=== PATIENT | female | born 1990 | race Caucasian/White ===

== ENCOUNTER 2016-10-19 09:55 | Emergency (ER) | payer MEDICAID ==
[~2016-10-19] VITALS: Ht 160 cm; Wt 68.0 kg
[2016-10-19 10:01] VITALS: Ht 160 cm; Wt 68.0 kg
--- NOTE | 2016-10-19 12:35 | RADRPT ---
PROCEDURE: US OB. CLINICAL INDICATION: Size and dates , PROM TECHNIQUE: Multiple sonographic images of the pelvis and gravid uterus were obtained. The images were reviewed on a PACS workstation. COMPARISON: No prior studies are available for comparison. FINDINGS: There is a single viable intrauterine gestation. Cardiac activity is present with 142 beats per min la posta. There is a variable presentation. The placenta is posterior. There is no evidence for an abruption or placenta previa. There is a normal amount of amniotic fluid with a MVP = 4.7 cm. Measurements were made in order to determine age. The results are as follows: BPD =4.2 cm HC =15.8 cm AC =14 cm FL =2.8 cm Estimated gestational age of approximately 18 weeks and 6 days based on ultrasound measurements. Clinical age: 19 weeks and 0 days. The estimated date of delivery is 03/16/17, based on ultrasound measurements. The EFW = 265 g, 42%, based on LMP age. The ovaries were not visualized. RPTAT: AA IMPRESSION: Single viable intrauterine gestation of approximately 18 weeks and 6 days based on ultrasound measu rements. .Antonio Ojeda MD, Date Time Electronically viewed and signed by .Antonio Ojeda MD, on 10/19/2016 12:35 .S/
[2016-10-19] MEDS ORDERED: METR500T PO (14:05)
--- NOTE | 2016-10-19 14:14 | ERD ---
ER Documentation Chief Complaint Date/Time DATE: 10/19/16 TIME: 14:05 Chief Complaint 19 weeks states had clear liquid discharge this morning HPI This is a 26-year-old female presents to the ER with vaginal discharge that she noticed this morning. Patient is currently 19 weeks and states that she got up to urinate and noticed that she had clear discharge. Patient denies any urinary frequency or dysuria. She denies any pelvic pain, pelvic cramping, vaginal pressure or pain, anal pressure or pain. A0. Patient denies any nausea vomiting or diarrhea. She denies any back pain. ROS 12 point review of systems was done, all negative except per HPI.. Medications Home Meds Active Scripts Metronidazole* (Flagyl*) 500 Mg Tablet, 500 MG PO TID for 7 Days, TAB Prov:MARTHA YBARRA 10/19/16 Allergies Allergies: Coded Allergies: No Known Allergy (Unverified , 10/19/16) PMhx/Soc Medical and Surgical Hx: pt denies Medical Hx, pt denies Surgical Hx Hx Alcohol Use: No Hx Substance Use: No Hx Tobacco Use: No Smoking Status: Never smoker Physical Exam Vitals Vital Signs Date Time Temp Pulse Resp B/P Pulse Ox O2 Delivery O2 Flow Rate FiO2 10/19/16 10:01 97.8 84 18 109/56 96 Physical Exam GENERAL: The patient is well developed and appropriate for usual state of health , in no apparent distress. HEENT: Atraumatic. CHEST: Clear to auscultation bilaterally. There are no rales, wheezes or rhonchi. HEART: Regular rate and rhythm. No murmurs, clicks, rubs or gallops. ABDOMEN: Soft, nontender and nondistended. Good bowel sounds. No rebound or guarding. No gross peritonitis. No gross organomegaly or masses. No Willis sign or McBurney point tenderness. : there is foul smelling vaginal discharge that is jade/yellow in color. no clear fluid is seen from cervical os when patient coughs. NEURO: Alert and oriented. SKIN: The skin is warm and dry. Results 24 hrs [id number] [place], [place] [address] Radiology Main Line: [phone] DIAGNOSTIC IMAGING REPORT Patient: HERMINIO SHEEHAN : 1990 Age: 26 Sex: F MR #: [id number] DOS: 10/19/16 0000 Ordering MD: MARTHA YBARRA PAKwasi Location: [facility] Room/Bed: PROCEDURE: US OB. CLINICAL INDICATION: Size and dates , PROM TECHNIQUE: Multiple sonographic images of the pelvis and gravid uterus were obtained. The images were reviewed on a PACS workstation. COMPARISON: No prior studies are available for comparison. FINDINGS: There is a single viable intrauterine gestation. Cardiac activity is present with 142 beats per minute. There is a variable presentation. The placenta is posterior. There is no evidence for an abruption or placenta previa. There is a normal amount of amniotic fluid with a MVP = 4.7 cm. Measurements were made in order to determine age. The results are as follows: BPD = 4.2 cm HC = 15.8 cm AC = 14 cm FL = 2.8 cm Estimated gestational age of approximately 18 weeks and 6 days based on ultrasound measurements. Clinical age: 19 weeks and 0 days. The estimated date of delivery is 03/16/17, based on ultrasound measurements. The EFW = 265 g, 42%, based on LMP age. The ovaries were not visualized. RPTAT: AA IMPRESSION: Single viable intrauterine gestation of approximately 18 weeks and 6 days based on ultrasound measurements. .Antonio Ojeda MD, Date Time Electronically viewed and signed by .Antonio Ojeda MD, MD on 10/19/2016 12: 35 .S/ CC: MARTHA YBARRA Procedures/MDM This is a 26-year-old female that states she had a vaginal discharge this morning. At this time there is a normal amount of amniotic fluid with no evidence of placenta abruption or previa. I discussed this case with my supervising physician Dr. Correa and with OB transportation attendant. PH testing was done and PH was 5 which is normal for the vaginal acidity ( paper remained yellow.) Discharge however was foul-smelling, patient may have bacterial vaginosis. She will be sent home with metronidazole. 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 She is to return to ER sooner if patient develops any sort of pelvic cramping, vaginal pain, anal pain or cramping or any other worsening symptoms. My medical decision making was discussed with the patient she understands and agrees with plan. Departure Diagnosis: Primary Impression: Vaginal discharge during in second trimester Condition: Stable Patient Instructions: : Your Second Trimester Changes Additional Instructions: Llame al doctor MAANA y filiberto radha YAMILE PARA DENTRO DE 1-2 BACH.Dgale a la secretaria que nosotros le instruimos hacer esta yamile.Avise o llame si clemente condicin se empeora antes de la yamile. Regresa aqui si peor o no mejor. MARTHA YBARRA Oct 19, 2016 14:14
[2016-10-19 14:27] VITALS: TEMP 98.4
== END 2016-10-19 14:28 | disposition home or self-care (01) ==
LOC: FTE 09:55
DX: O99.89 Other specified diseases and conditions complicating pregnancy, childbirth and the puerperium (principal); N89.8 Other specified noninflammatory disorders of vagina; Z3A.18 18 weeks gestation of pregnancy
CPT/HCPCS: 76805; Z7502

== ENCOUNTER 2017-03-08 00:10 | Inpatient (IN) | payer MEDICAID ==
[~2017-03-08] VITALS: Ht 157.5 cm; Wt 67.8 kg
[2017-03-08] VITALS (8 sets, daily range): BP systolic 112–145; BP diastolic 62–73; PULSE 52–71; RESP 17–58
[~2017-03-08 00:10] MED LIST: METR500T PO
[2017-03-08] MEDS ORDERED: OXYTOCIN 30 UNITS/LR 500 ML IV PRN ×2 (01:30→09:00)
[2017-03-08] MEDS ORDERED: METHYLERGONOVINE 0.2 MG INJ IM PRN ×2 (01:30→09:00)
[2017-03-08] MEDS ORDERED: OXYTOCIN 30 UNITS/LR 500 ML IV SCH (01:30)
[2017-03-08] MEDS ORDERED: CEFAZOLIN 2 GM/50 ML (PMX) 50 ML IV SCH (01:30)
[2017-03-08] MEDS ORDERED: CARBOPROST 250 MCG INJ IM PRN ×2 (01:30→09:00)
[2017-03-08] MEDS ORDERED: MISOPROSTOL 200 MCG TAB PR PRN ×2 (01:30→09:00)
[2017-03-08] MEDS: LACTATED RINGER'S 1,000 ML IV SCH ×4 (01:58→22:04)
--- NOTE | 2017-03-08 02:22 | RADRPT ---
PROCEDURE: Obstetrical ultrasound, limited. CLINICAL INDICATION: Pelvic pain. TECHNIQUE: Multiple sonographic images of the pelvis were obtained using transabdominal technique . Images were obtained with pollock scale and color Doppler. The images were reviewed on a PACS works [employer]. COMPARISON: 10/19/2016. FINDINGS: There is a single living intrauterine gestation with the fetus in a vertex presentation. hear t tones of 132 beats per minute are identified. The placenta is right lateral in location, grade 2. There is no evidence of placenta previa or abruption. Measurements were made in order to determine age. The results are as follows: BPD =8.63 cm HC =32.12 cm AC =34.57 cm FL =7.60 cm. Estimated gestational age of approximately 37 weeks and 1 day. The estimated date of delivery is 03/28/2017. The EFW = 3322 +/- 498 grams. Estimated weight percentage equals 44.7%. IMPRESSION: Single viable intrauterine gestation of approximately 37 weeks and 1 day, with an ultrasound CHELLY of 03/28/2017. .Kendell Mathur MD, MD Date Time Electronically viewed and signed by .Kendell Mathur MD, MD on 03/08/2017 02:21 .T/
[2017-03-08] MEDS ORDERED: AMPICILLIN 2 GM/NS (PMX) 100 ML IV STA (02:33)
[2017-03-08] MEDS ORDERED: TERBUTALINE 1 MG/ML INJ SC STA (02:47)
[2017-03-08] MEDS ORDERED: TERBUTALINE 1 ML ONE (02:51)
[2017-03-08 02:53] LABS: BASOPHILS % 0.2 % (0.0-2.0); EOSINOPHILS % 0.2 % (0.0-7.0); HEMATOCRIT 38.1 % (37.0-47.0); HEMOGLOBIN 12.9 g/dl (12.0-16.0); LYMPHOCYTES # 3.1 10^3/ul (0.8-2.9); LYMPHOCYTES % 24.9 % (15.0-51.0); MEAN CORPUSCULAR HGB CONC 33.9 g/dl (32.0-37.0); MEAN CORPUSCULAR VOLUME 91.6 fl (82.0-101.0); MEAN PLATELET VOLUME 11.6 fl (7.4-10.4); MONOCYTE # 0.8 10^3/ul (0.3-0.9); MONOCYTES % 6.3 % (0.0-11.0); NEUTROPHILS % 67.8 % (39.0-77.0); PLATELET COUNT 199 10^3/UL (140-415); RED BLOOD COUNT 4.16 10^6/ul (4.20-5.40); RED CELL DISTRIBUTION WIDTH 15.6 % (11.5-14.5); WHITE BLOOD COUNT 12.5 10^3/ul (4.8-10.8)
[2017-03-08] MEDS ORDERED: TERBUTALINE 1 MG/ML INJ SC ONE (03:00)
[2017-03-08 03:22] LABS: INR 0.96; PROTIME 12.8 Sec (12.2-14.2)
[2017-03-08 03:23] LABS: PARTIAL THROMBOPLASTIN TIME 29.7 Sec (25.0-35.0)
[2017-03-08] MEDS ORDERED: PROPOFOL 200 MG INJ ONE (03:45)
[2017-03-08] MEDS ORDERED: OXYTOCIN 30 UNITS/LR 500 ML BAG IV ONE (03:45)
[2017-03-08] MEDS ORDERED: CEFAZOLIN 1 GM INJ ONE (03:45)
[2017-03-08] MEDS ORDERED: EPHEDrine SULFATE 50 MG/5 ML SYG ONE (03:47)
[2017-03-08] MEDS ORDERED: FENTAnyl 50 MCG/ML VIAL ONE (03:47)
[2017-03-08] MEDS ORDERED: morphine SULFATE/PF (10 MG/10 ML) INJ ONE (03:47)
[2017-03-08] MEDS ORDERED: PHENYLephrine (100 MCG/ML) 5ML SYG ONE (03:47)
[2017-03-08] MEDS ORDERED: ONDANSETRON 4 MG INJ ONE (04:11)
[2017-03-08] MEDS ORDERED: DEXAMETHASONE 4 MG/ML 1 ML INJ ONE (04:12)
--- NOTE | 2017-03-08 04:17 | TRIAGE ---
OB Triage Datetime Report Generated by CPN: 03/08/2017 04:16 Datetime: 03/08/2017 03:27 Comments: PT SHIFTING POSITION, MONITOR PICKING UP MATERNAL HR Datetime: 03/08/2017 03:15 Labor Evaluation Frequency: 3-6 Monitor Mode: External Duration (sec)2399: 40-60 Quality: Moderate Pattern: Normal: <= 5 Contractions in 10 Minutes Resting Tone [place] Number Two: Relaxed Heart Rate FHR Baseline Rate: 135 Monitor Mode: External US Variability: Moderate 6-25 bpm Accelerations: 15X15 Decelerations: None Category: Category I Pain Assessment Pain Scale: 5 Pain Presence: Intermittent Pain Type: Contraction Pain Location: Abdomen Pain Relief Measures: Comfort Measures Datetime: 03/08/2017 02:21 Vaginal Exam Dilatation (cms): 0.5 Effacement (%): 40 Station: -3 Exam By: JereFERRARO Datetime: 03/08/2017 02:15 Maternal Assessment Level of Consciousness: Fully Conscious DTR's/Clonus: DTRs 2+; No Clonus Headache: Denies Blurred Vision: No Nausea/Vomiting: Denies RUQ Epigastric Pain: Denies Facial Edema: None Labor Evaluation Frequency: 2-4 Monitor Mode: External Duration (sec)2399: 40-60 Quality: Moderate Pattern: Normal: <= 5 Contractions in 10 Minutes Resting Tone [place] Number Two: Relaxed Interventions: IV Bolus Heart Rate FHR Baseline Rate: 130 Monitor Mode: External US Variability: Moderate 6-25 bpm Accelerations: 15X15 Decelerations: Variable Category: Category II Pain Assessment Pain Scale: 10 Pain Presence: Intermittent Pain Type: Contraction Pain Location: Abdomen Pain Relief Measures: Comfort Measures Datetime: 03/08/2017 01:58 Assessment Type: Admission Assessment Maternal Assessment Level of Consciousness: Fully Conscious DTR's/Clonus: DTRs 2+; No Clonus Headache: Denies Blurred Vision: No Respiratory Effort: Unlabored; Regular Rhythm; Equal Expansion Breath Sounds, Left: Clear and Equal Breath Sounds, Right: Clear and Equal Nausea/Vomiting: Denies RUQ Epigastric Pain: Denies Lower Extremities Edema: None Degree: None Upper Extremities Edema: None Degree: None Facial Edema: None Fall Risk Assessment History of Falling: (0) No Secondary Diagnosis: (0) No Ambulatory Aid: (0) Bedrest/Nurse Assist IV Therapy: (20) Yes Gait: (0) Normal/Bedrest/Immobile Mental Status: (0) Oriented to Own Ability Fall Score: 20 Fall Risk Score Definition: No Risk: No action required Datetime: 03/08/2017 01:46 Comments: US TECH PERFORMING EFW US SCREENING Datetime: 03/08/2017 01:24 Time of Arrival: 03/08/2017 01:24 EGA: 39.0 Arrived By: Stretcher Arrived From: TRIAGE Datetime: 03/08/2017 01:22 Stage of : OB Triage Labor Evaluation Frequency: 2-5 Monitor Mode: Palpation Duration (sec)2399: 40-100 Quality: Mild Resting Tone [place] Number Two: Relaxed Heart Rate FHR Baseline Rate: 115 Monitor Mode: External US Variability: Moderate 6-25 bpm Accelerations: 15X15 Decelerations: None Category: Category I Datetime: 03/08/2017 00:53 Assessment Type: Triage Maternal Assessment Level of Consciousness: Fully Conscious DTR's/Clonus: DTRs 2+; No Clonus Headache: Denies Blurred Vision: No Respiratory Effort: Unlabored Breath Sounds, Left: Clear and Equal Breath Sounds, Right: Clear and Equal Nausea/Vomiting: Denies RUQ Epigastric Pain: Denies Lower Extremities Edema: Bilateral Lower Extremities Degree: 1+ Upper Extremities Edema: None Degree: None Facial Edema: None Fall Risk Assessment History of Falling: (0) No Secondary Diagnosis: (15) Yes (Annotations: C/S X 1) Ambulatory Aid: (0) Bedrest/Nurse Assist IV Therapy: (0) No Gait: (10) Weak Mental Status: (0) Oriented to Own Ability Fall Score: 25 Fall Risk Score Definition: Low Risk: Please see standard fall prevention interventions Datetime: 03/08/2017 00:33 Vaginal Exam Dilatation (cms): 0.5 Effacement (%): 40 Station: -3 Exam By: Zachary GARCIA Vaginal Bleeding: None Cervix, Consistency: Firm Cervix, Position: Posterior Presentation 'A': Cephalic Datetime: 03/08/2017 00:21 Time of Arrival: 03/08/2017 01:00 EGA: 39.0 Arrived By: Wheelchair Arrived From: Home Chief Complaint: UCs since 2199. Movement: Present Contractions: Regular Time Contractions Began: 03/08/2017 22:00 Contractions: Q5MIN Rupture of Membranes: Denies Vaginal Bleeding: None Vaginal Discharge: Denies Recent Sexual Intercouse: Denies Abdominal Trauma: Not Applicable Patient Complaints: Contractions Additional Patient Complaints: Previous x1 Initial Plan: VS, EFM, SVE Membranes Rupture Method: Artificial Datetime: 03/08/2017 00:20 Monitor Mode: External US Comments: PLACED Datetime: 03/08/2017 00:17 Stage of : OB Triage Monitor Mode: External Contraction Comments: PLACED
[2017-03-08] MEDS ORDERED: NALOXONE (0.4 MG/ML) INJ IV PRN (05:00)
[2017-03-08] MEDS ORDERED: ONDANSETRON 4 MG INJ IV PRN ×2 (05:00→09:00)
[2017-03-08] MEDS ORDERED: TRIMETHOBENZAMIDE 100 MG/ML VIAL IM PRN (05:00)
[2017-03-08] MEDS ORDERED: HYDROmorphONE 1 MG/ML SYG IV PRN ×2 (05:00)
[2017-03-08] MEDS ORDERED: ZOLPIDEM 5 MG TAB PO PRN ×2 (05:00→09:00)
--- NOTE | 2017-03-08 06:28 | HP ---
Date/Time of Note Date/Time of Note DATE: 03/08/17 TIME: 06:22 OB - History Hx of Present Free Text/Dictation 26y.o G@P1 at 39weeks c/o uterine contractions who had x1 previous c/s pain level 8/10 EFM u.c 2-5 min VE ftp 40%-3 admit for repeat c/s course was unevenful. Chief Complaint: uterine contractions Estimated Due Date: Mar 15, 2017 : 2 Para: 1 Spontaneous : 0 Therapeutic : 0 Care: Good Care Ultrasounds: Normal mid trimester US Obstetrical Complications: None Medical Complications: None Past Family/Social History * Past Medical, Surgical, Family and Obstetric Histories reviewed from chart. Blood Type: O+ Rubella: immune RPR/VDRL: Negative GBS Status: Unknown HBsAG: Negative OB Admission Exam Vital Signs Vital Signs Vital Signs Date Time Temp Pulse Resp B/P Pulse Ox O2 Delivery O2 Flow Rate FiO2 03/08/17 00:56 98.1 71 19 118/73 Room Air Physical Exam HEENT: WNL Cervical Dilatation: Fingertip Effacement: 50% Station: -3 Membranes: Intact Amniotic Fluid: Unevaluable Heart Rate: 150's Accelerations: Accelerations Present Decelerations: No Decelerations Varibility: Moderate Contractions on Admission: < 5 Minutes Apart Intensity: Moderate Last 72 hours Lab Results CBC & BMP 03/08/17 02:35 OB Assessment/Plan Reason for admission: section Other Assessment: IUP 39w with previous section in labor Plan: Section RIK TOLBERT MD Mar 08, 2017 06:28
--- NOTE | 2017-03-08 06:48 | OPR ---
Operative Report Planned Procedure Procedure date Mar 08, 2017 Procedure(s) repeat low transverse section Performed by: RIK TOLBERT MD Assisting provider: MANNY STEPHENSON M.D. Anesthesiologist: RADHA CASANOVA DO Pre-procedure diagnosis IUP 39w with previous section in labor Anesthesia Type: spinal Procedure Description Under satisfactory [] anesthesia, the patient was prepped and draped and placed in a supine position, tilted to the left. Pfannenstiel incision was made,along the previous incisional scar, scar tissue was excised and carried through the subcutaneous tissue. Bleeders brought under control with electrocautery. Fascia incised to the length of the incision. Rectus muscles from the fascia , divided midline. Peritoneum exposed, entered Exploration of abdomen revealed gravid uterus. Transverse incision was made in the lower segment of the uterus.above the uterovesical reflection layer by layer and Amniotic sac ruptured. clear amniotic fluid noted. [] Nasal oropharyngeal suction was performed. The baby was handed to the team for immediate attention. The placenta was delivered manually with some difficulty due to accessor lobe was located in the rt horn which was separately removed. Uterine cavity was cleaned with dry lap, It was noticed that rt horn was not firm up as main uterus. hemobate was given directly in the muscle of rt horn. Uterus closed in 2 layers using [#1 and 0 ch gut] in continuous fashion. Peritoneal cavity irrigated with warm saline. Sponge, needle and instrument count reported to be correct. Abdominal peritoneum closed with 0ch gut[] continuously. Rectus muscle approximated with 0ch gut[]. Fascia closed with #1 vicryl , and subcut closed with 00 plain gut[], and skin closed with 000 monocryl in subcuticular manner Estimated blood loss 700[]mL. Urine bag contained [200]mL of urine Post-Procedure Post-procedure diagnosis delivered normal male Findings: Live Baby [boy], Apgars [8] and []9, weight [], position [AUBREY], [] presentation []Vxcord.x1 loose nuchal cord Specimen removed: No Complications: None Pt Condition post procedure: stable Disposition: PACU Physician Certification I, the undersigned physician, hereby certify that I have discussed the procedure described in this consent form with this patient (or the patient's legal resources representative), including: * The risk and benefits of the procedure; * Any adverse reactions that may reasonably be expected to occur; * Any alternative efficacious methods of treatment which may be medically viable ; * The potential problems that may occur during recuperation; * Potential for blood transfusion and associated risks/benefits; and * Any research or economic interest I may have regarding this treatment. I further certify that the patient/legally responsible person was encouraged to ask question and that all questions were answered. RIK TOLBERT MD Mar 08, 2017 06:48
--- NOTE | 2017-03-08 06:55 | SIPON ---
Date/Time of Note Date/Time of Note DATE: 03/08/17 TIME: 06:49 Operative Report Free Text/Dictation with previous c/s in lbor at 39w Preoperative Diagnosis IUP 39weeks with previous c/s Postoperative Diagnosis delivered normal male infant Operation/Procedure Performed repeat lowtransverse section Surgeon: RIK TOLBERT MD Co-Surgeon: MANNY STEPHENSON M.D. Anesthesia Type: spinal Estimated Blood Loss: other (700cc) Transfusion Required: no Specimen: none Specimens none Grafts/Implants: none Grafts/Implants none Complications: no RIK TOLBERT MD Mar 08, 2017 06:55
[2017-03-08] MEDS ORDERED: LIDOCAINE 2% (SDV) 5 ML INJ ONE (07:00)
[2017-03-08] MEDS ORDERED: AMPICILLIN 1 GM/NS (PMX) 50 ML IV SCH (07:00)
[2017-03-08] MEDS ORDERED: DESFLURANE 15 MIN ONE (07:00)
[2017-03-08 08:06] LABS: HAAIG REFLEX REFLEX FILED
[2017-03-08] MEDS ORDERED: DIPHENHYDRAMINE 50 MG INJ IV PRN (09:00)
[2017-03-08] MEDS: SENNA/DOCUSATE NA (8.6MG/50MG) TAB PO SCH ×2 (09:00→21:20)
[2017-03-08] MEDS ORDERED: LANOLIN 7 GM TUBE TOP PRN (09:00)
[2017-03-08] MEDS ORDERED: OXYCODONE/ACETAMINOPHEN (5/325) TAB PO PRN ×2 (09:00)
[2017-03-08 09:07] LABS: HEPATITIS B CORE ANTIBODY NEGATIVE (NEGATIVE)
[2017-03-08] MEDS: KETOROLAC 30 MG INJ IV PRN (22:04)
[2017-03-09 00:15] VITALS: BP 105/62; PULSE 72; RESP 18
[2017-03-09 03:43] VITALS: BP 113/68; PULSE 60; RESP 18
[2017-03-09] MEDS: KETOROLAC 30 MG INJ IV PRN (03:43)
[2017-03-09] MEDS: IBUPROFEN 600 MG TAB PO SCH ×4 (06:00→23:58)
[2017-03-09 08:00] VITALS: BP 107/53; PULSE 55; RESP 16
[2017-03-09] MEDS: LACTATED RINGER'S 1,000 ML IV SCH ×2 (09:11→17:11)
[2017-03-09] MEDS: SENNA/DOCUSATE NA (8.6MG/50MG) TAB PO SCH ×2 (09:34→21:56)
[2017-03-09 10:01] LABS: BASOPHILS % 0.1 % (0.0-2.0); EOSINOPHILS # 0.1 10^3/ul (0.0-0.5); EOSINOPHILS % 0.4 % (0.0-7.0); HEMATOCRIT 36.2 % (37.0-47.0); HEMOGLOBIN 11.8 g/dl (12.0-16.0); LYMPHOCYTES # 2.8 10^3/ul (0.8-2.9); LYMPHOCYTES % 15.4 % (15.0-51.0); MEAN CORPUSCULAR HEMOGLOBIN 30.6 pg (29.0-33.0); MEAN CORPUSCULAR HGB CONC 32.6 g/dl (32.0-37.0); MEAN PLATELET VOLUME 11.5 fl (7.4-10.4); MONOCYTE # 1.2 10^3/ul (0.3-0.9); MONOCYTES % 6.5 % (0.0-11.0); PLATELET COUNT 164 10^3/UL (140-415); RED BLOOD COUNT 3.85 10^6/ul (4.20-5.40); RED CELL DISTRIBUTION WIDTH 16.1 % (11.5-14.5); WHITE BLOOD COUNT 17.9 10^3/ul (4.8-10.8)
--- NOTE | 2017-03-09 14:02 | PN ---
Date/Time of Note Date/Time of Note DATE: 03/09/17 TIME: 13:58 OB Subjective Subjective Subjective passing flatus OB Objective Objective Objective vss afebrile abdomen soft wound dry lochia min calf neg for tenderness OB Assessment/Plan Reason for admission: section Other Assessment: pod #1 stable Other plan: as ordered RIK TOLBERT MD Mar 09, 2017 14:01
[2017-03-09 16:00] VITALS: BP 102/53; PULSE 66; RESP 16
[2017-03-09 20:00] VITALS: BP 126/77; PULSE 63; RESP 18
[2017-03-10 04:20] VITALS: BP 108/59; PULSE 52; RESP 18
[2017-03-10] MEDS: IBUPROFEN 600 MG TAB PO SCH ×3 (05:33→17:58)
[2017-03-10 08:45] VITALS: BP 104/62; PULSE 57; RESP 19
[2017-03-10] MEDS: SENNA/DOCUSATE NA (8.6MG/50MG) TAB PO SCH (09:00)
[2017-03-10 09:43] LABS: BASOPHILS % 0.3 % (0.0-2.0); EOSINOPHILS # 0.1 10^3/ul (0.0-0.5); EOSINOPHILS % 0.6 % (0.0-7.0); HEMOGLOBIN 11.6 g/dl (12.0-16.0); LYMPHOCYTES # 2.9 10^3/ul (0.8-2.9); LYMPHOCYTES % 18.2 % (15.0-51.0); MEAN CORPUSCULAR HGB CONC 33.1 g/dl (32.0-37.0); MEAN CORPUSCULAR VOLUME 93.6 fl (82.0-101.0); MEAN PLATELET VOLUME 11.6 fl (7.4-10.4); MONOCYTES % 6.1 % (0.0-11.0); NEUTROPHILS % 74.4 % (39.0-77.0); PLATELET COUNT 182 10^3/UL (140-415); RED BLOOD COUNT 3.74 10^6/ul (4.20-5.40); RED CELL DISTRIBUTION WIDTH 15.7 % (11.5-14.5); WHITE BLOOD COUNT 15.6 10^3/ul (4.8-10.8)
--- NOTE | 2017-03-10 15:58 | PD.PPDC ---
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
--- NOTE | 2017-03-10 16:02 | DS ---
Date/Time of Note Date/Time of Note DATE: 03/10/17 TIME: 16:01 Obstetrical Discharge Record Final Diagnosis Final Diagnosis: Term delivered Section Section: Repeat Complications Augmentation: No Induction: No Rupture of Membranes: No Condition on Discharge Physical Assessment Last Vitals: vss afebrile Voiding: Yes Bowel Movement: Yes Breast: Soft, non-tender Fundus: Firm Abdomen and Incision: wound dry abdomen soft Calf Tenderness: No Patient Condition: Stable RIK TOLBERT MD Mar 10, 2017 16:02
[2017-03-10] MEDS ORDERED: DIPHTH/TET/ACEL PERTUSS (ADULT) 0.5 ML VIAL IM* ONE (17:00)
[2017-03-11] MEDS ORDERED: DIPHTH/TET/ACEL PERTUSS (ADULT) 0.5 ML VIAL IM* ONE (09:00)
== END 2017-03-10 18:30 | disposition home or self-care (01) | DRG 766 ==
LOC: L-D 00:10 → OBT 00:10 → L-D 01:18 → PP1 09:17
PROVIDERS: ADMIT Obstetrics & Gynecology; ATTEND Obstetrics & Gynecology
PROC: 10D00Z1 Extraction of Products of Conception, Low, Open Approach (ICD-10-PCS; principal; 2017-03-08 04:00)
PROC: 3E0234Z Introduction of Serum, Toxoid and Vaccine into Muscle, Percutaneous Approach (ICD-10-PCS; 2017-03-10)
DX: O34.211 Maternal care for low transverse scar from previous cesarean delivery (principal); Z3A.39 39 weeks gestation of pregnancy; Z37.0 Single live birth; Z23 Encounter for immunization
CPT/HCPCS: 76815; 85025; 85610; 85730; 86592; 86703; 86704; 86709; 86803; 86850; 86900; 86901; 87340; 90715; 94760; 99464; G0463; J0290; J0690; J1100; J1885; J2274; J2370; J2405; J2590; J3010; J3105; J7120

== ENCOUNTER 2018-09-03 11:51 | Inpatient (IN) | payer MEDICAID ==
[~2018-09-03] VITALS: Ht 157.5 cm; Wt 72.6 kg
[2018-09-03] MEDS ORDERED: PREN-93 PO (12:10)
[2018-09-03 12:11] VITALS: BP 110/59; PULSE 64; RESP 18; Ht 157.5 cm; Wt 72.6 kg
--- NOTE | 2018-09-03 14:00 | TRIAGE ---
OB Triage Datetime Report Generated by CPN: 09/03/2018 14:00 Datetime: 09/03/2018 13:00 Stage of : OB Triage Maternal Assessment Level of Consciousness: Fully Conscious Labor Evaluation Frequency: 2-4 Monitor Mode: External Duration (sec)2399: 50-130 Quality: Moderate Resting Tone [place]: Relaxed Heart Rate FHR Baseline Rate: 125 Monitor Mode: External US Variability: Moderate 6-25 bpm Accelerations: 15X15 Decelerations: None Category: Category I Pain Assessment Pain Scale: 0 Pain Goal: 3 Vaginal Exam Membrane Status: Intact Vaginal Bleeding: None Datetime: 09/03/2018 12:08 Assessment Type: Triage Maternal Assessment Level of Consciousness: Fully Conscious DTR's/Clonus: DTRs 2+; No Clonus Headache: Denies Blurred Vision: No Respiratory Effort: Unlabored; Regular Rhythm; Equal Expansion Breath Sounds, Left: Clear and Equal Breath Sounds, Right: Clear and Equal Nausea/Vomiting: Denies RUQ Epigastric Pain: Denies Lower Extremities Edema: None Degree: None Upper Extremities Edema: None Degree: None Facial Edema: None Fall Risk Assessment History of Falling: (0) No Secondary Diagnosis: (0) No Ambulatory Aid: (0) Bedrest/Nurse Assist IV Therapy: (0) No Gait: (0) Normal/Bedrest/Immobile Mental Status: (0) Oriented to Own Ability Fall Score: 0 Fall Risk Score Definition: No Risk: No action required Datetime: 09/03/2018 12:07 Time of Arrival: 09/02/2018 11:47 EGA: 38.5 Arrived By: Ambulatory Arrived From: Home Chief Complaint: pt. here c/o spotting since this am Movement: Present Contractions: Denies/Absent Rupture of Membranes: Denies Vaginal Bleeding: None Vaginal Discharge: Denies Recent Sexual Intercouse: Denies Abdominal Trauma: Not Applicable Patient Complaints: Contractions; Cramping; Back Pain Time Provider Notified: 09/03/2018 13:57 Provider Notified: REICHE Datetime: 09/03/2018 12:05 Monitor Mode: External Monitor Mode: External US
[2018-09-03] MEDS ORDERED: LACTATED RINGER'S 1,000 ML IV SCH (14:48)
[2018-09-03] MEDS ORDERED: TERBUTALINE 1 MG/ML INJ SC ONE (15:00)
[2018-09-03] MEDS ORDERED: CEFAZOLIN 2 GM/50 ML (PMX) 50 ML IVPB SCH (15:00)
[2018-09-03] MEDS ORDERED: BUTORPHANOL 2 MG INJ IV PRN (15:00)
[2018-09-03] MEDS ORDERED: OXYTOCIN 30 UNITS/LR 500 ML IV SCH (15:00)
[2018-09-03] MEDS ORDERED: OXYTOCIN 30 UNITS/LR 500 ML IV PRN ×2 (15:00→20:00)
[2018-09-03] MEDS ORDERED: BUTORPHANOL 1 MG INJ IV PRN (15:00)
[2018-09-03] MEDS ORDERED: CARBOPROST 250 MCG INJ IM PRN ×2 (15:00→20:00)
[2018-09-03] MEDS ORDERED: MISOPROSTOL 200 MCG TAB PR PRN ×2 (15:00→20:00)
[2018-09-03] MEDS ORDERED: METHYLERGONOVINE 0.2 MG INJ IM PRN ×2 (15:00→20:00)
[2018-09-03] MEDS ORDERED: ONDANSETRON 4 MG INJ IV STA (16:40)
[2018-09-03] MEDS ORDERED: METOCLOPRAMIDE 10 MG INJ IV ONE (17:00)
[2018-09-03] MEDS ORDERED: FAMOTIDINE 20 MG INJ IV ONE (17:00)
--- NOTE | 2018-09-03 17:18 | PREAC ---
Date/Time of Note Date/Time of Note DATE: 09/03/18 TIME: 17:17 Anesthesia Eval and Record Evaluation Time Pre-Procedure Interview DATE: 09/03/18 TIME: 17:17 Age 28 Sex female NPO: 8 hrs Preoperative diagnosis labor contractions, previous Csection Planned procedure Repeat Csection Past Medical History Past Medical History: None Surgery & Anesthesia Issues No known issue Meds Anticoagulation: No Beta Yasir within 24 hr: No Reason Beta Yasir not given: Pt. not on B-Yasir Reported Medications Vit No.124/Iron/FA ( Vitamin Tablet) 1 Each Tablet, 1 EACH PO DAILY, TAB 09/03/18 Current Medications Lactated Ringer's 1,000 ml @ 125 mls/hr Q8H IV ; Start 09/03/18 at 14:48 Cefazolin Sodium/ Dextrose 50 ml @ 100 mls/hr ONCE IVPB ; Start 09/03/18 at 15:00 Oxytocin/Lactated Ringer's 500 ml @ 125 mls/hr POST IV ; Start 09/03/18 at 15:00 Oxytocin/Lactated Ringer's 500 ml @ 0 mls/hr ONCE PRN IV .VAGINAL BLEEDING; Start 09/03/18 at 15:00 Methylergonovine Maleate (Methergine) 0.2 mg ONCE PRN IM .VAGINAL BLEEDING; Start 09/03/18 at 15:00 Carboprost Tromethamine (Hemabate) 250 mcg ONCE PRN IM .VAGINAL BLEEDING; Start 09/03/18 at 15:00 Misoprostol (Cytotec) 1,000 mcg ONCE PRN ME .VAGINAL BLEEDING; Start 09/03/18 at 15:00 Butorphanol Tartrate (Stadol) 1 mg Q2H PRN IV .PAIN; Start 09/03/18 at 15:00 Butorphanol Tartrate (Stadol) 2 mg Q2H PRN IV .PAIN; Start 09/03/18 at 15:00 Meds reviewed: Yes Allergies Coded Allergies: No Known Allergy (Unverified , 03/08/17) Allergies Reviewed: Yes Labs/Studies Labs Reviewed: Reviewed by anesthesiologist Result Diagram: 09/03/18 1340 Laboratory Tests 09/03/18 13:40 Blood Bank Test 09/03/18 13:40 Antibody Screen NEGATIVE Blood Type O POSITIVE Rh Immune Globulin Candidate NO test: Positive Pre-procedure Exam Last vitals Vital Signs Date Temp Pulse Resp B/P (MAP) Pulse Ox O2 O2 Flow FiO2 Time Delivery Rate 09/03/18 98.0 64 18 110/59 Room Air 12:11 (76) Airway: Adequate mouth opening, Adequate thyromental dist Mallampati: Mallampati III Teeth: Normal Lung: Normal Heart: Normal ASA Physical Status ASA physical status: 2 Emergency: None Planned Anesthetic Neuraxial: Spinal Planned Pain Management Sub-arachniod narcotics, Parenteral pain med, Other neuraxial med Pre-operative Attestations Prior to commencing anesthesia and surgery, the patient was re-evaluated, there was verification of: *The patient's identity *The results of appropriate recent lab work and preoperative vital signs *The above evaluation not changing prior to induction *Anesthetic plan, risk benefits, alternative and complications discussed with patient/family; questions answered; patient/family understands, accepts and wishes to proceed. KATHY KOHLI MD Sep 03, 2018 17:18
[2018-09-03] MEDS ORDERED: ZOLPIDEM 5 MG TAB PO PRN (17:30)
[2018-09-03] MEDS ORDERED: DIPHENHYDRAMINE 50 MG INJ IV PRN ×2 (17:30)
[2018-09-03] MEDS ORDERED: FENTAnyl 50 MCG/ML VIAL IV PRN ×2 (17:30)
[2018-09-03] MEDS ORDERED: HYDROmorphONE 1 MG/5 ML IV SYRINGE IV PRN ×3 (17:30)
[2018-09-03] MEDS ORDERED: ONDANSETRON 4 MG INJ IV PRN ×2 (17:30)
[2018-09-03] MEDS ORDERED: hydrALAzine 20 MG INJ IV PRN (17:30)
[2018-09-03] MEDS ORDERED: NALOXONE (0.4 MG/ML) INJ IV PRN (17:30)
[2018-09-03] MEDS ORDERED: KETOROLAC 30 MG INJ IV PRN ×2 (17:30)
[2018-09-03] MEDS ORDERED: LABETALOL HCL 20MG INJ IV PRN (17:30)
[2018-09-03] MEDS ORDERED: HYDROmorphONE 0.5 MG/0.5 ML SYG IV PRN ×2 (17:30)
[2018-09-03] MEDS ORDERED: morphine SULFATE/PF (10 MG/10 ML) INJ ONE (17:32)
[2018-09-03] MEDS ORDERED: OXYTOCIN 10 UNIT INJ ONE (17:35)
[2018-09-03] MEDS ORDERED: nitroGLYCerin 50 MG INJ ONE (18:10)
--- NOTE | 2018-09-03 19:43 | PAC ---
Date/Time of Note Date/Time of Note DATE: 09/03/18 TIME: 19:43 Post-Anesthesia Notes Post-Anesthesia Note Last documented vital signs Vital Signs Date Temp Pulse Resp B/P (MAP) Pulse Ox O2 O2 Flow FiO2 Time Delivery Rate 09/03/18 98.0 64 18 110/59 Room Air 12:11 (76) Activity: WNL Respiratory function: WNL Cardiovascular function: WNL Mental status: Baseline Pain reasonably controlled: Yes Hydration appropriate: Yes Nausea/Vomiting absent: Yes KATHY KOHLI MD Sep 03, 2018 19:43
--- NOTE | 2018-09-03 19:56 | HP ---
Date/Time of Note Date/Time of Note DATE: 09/03/18 TIME: 19:49 OB - History Hx of Present Free Text/Dictation 28 y.o. with 2 prior cesareans and desiring permanent sterilization with a consent signed 05/17/18 and was scheduled for her repeat tomorrow AM but came in labor today and we therefore are proceeding to a repeat with a BTL. Estimated Due Date: Sep 11, 2018 : 3 Para: 2 Care: Good Care Ultrasounds: Normal mid trimester US Obstetrical Complications: None Medical Complications: None Other Concerns: PMHx: none. PSHx: x 2. NKDA. Past Family/Social History * Past Medical, Surgical, Family and Obstetric Histories reviewed from chart. Blood Type: O+ Rubella: immune RPR/VDRL: Negative GBS Status: Unknown HBsAG: Negative OB Admission Exam Vital Signs Vital Signs Vital Signs Date Temp Pulse Resp B/P (MAP) Pulse Ox O2 O2 Flow FiO2 Time Delivery Rate 09/03/18 98.0 64 18 110/59 Room Air 12:11 (76) Physical Exam HEENT: WNL Heart: Rhythm Normal Lungs: Clear Abdomen: WNL Extremities: Normal Cervical Dilatation: None (deferred) Effacement: 0% Membranes: Intact Heart Rate: 120's Accelerations: Accelerations Present Decelerations: No Decelerations Varibility: Moderate Contractions on Admission: 6-10 Minutes Apart Intensity: Moderate Last 72 hours Lab Results CBC & BMP 09/03/18 13:40 OB Assessment/Plan Reason for admission: active labor, section Other Assessment: Desires permanent sterilization. Plan: Section Other plan: Bilateral tubal ligation. ABBY RAWLS MD Sep 03, 2018 19:56
[2018-09-03] MEDS ORDERED: NACL 0.9% 3 ML SYG IV SCH (20:00)
[2018-09-03] MEDS ORDERED: OXYCODONE/ACETAMINOPHEN (5/325) TAB PO PRN ×2 (20:00)
[2018-09-03] MEDS ORDERED: LANOLIN HPA 1 PKT TOP PRN (20:00)
--- NOTE | 2018-09-03 20:15 | OPR ---
Operative Report Planned Procedure Procedure date Sep 03, 2018 Procedure(s) Repeat with bilateral tubal ligation. Performed by see signature line Bike Mechanic: MANNY STEPHENSON M.D. Anesthesiologist: KATHY KOHLI MD Pre-procedure diagnosis IUP at 38w 6d for repat with BTL, in labor. [id number] Anesthesia Type: Halzn7r spinal Post-Procedure Post-procedure diagnosis Same Findings Viable baby boy weighing 3690 grams or 8# 2 ounces, 20" long, and with Apgars of 9/9. Estimated Blood Loss: 400 - 500 mls Specimen(s) none Grafts/Implant(s) none Complication(s) none Pt Condition post procedure: stable Disposition: PACU Procedure Description Under satisfactory spinal anesthesia, the patient was prepped and draped and placed in a supine position, tilted to the left. Elliptical Pfannenstiel incision was made to remove the old keloid scar, carried through the subcutaneous tissue. Bleeders brought under control with electrocautery. Fascia incised to the length of the incision. Rectus muscles from the fascia, divided midline. Peritoneum exposed, entered through a transverse incision. Transverse incision was made in the lower segment of the uterus. Amniotic sac ruptured. Clear amniotic fluid noted. The head was easily delivered using gentle fundal pressure. A nuchal cord was reduced and the rest of the baby was easily delivered. The mouth and nares were bulb suctioned. The cord was doubly clamped and cut after 30 seconds. The baby was brought to the warmer and the team for immediate attention. The placenta was delivered manually intact. Uterine cavity was cleaned with wet sponge and drainage established. The uterus was well contracted except for the right fundus, alone, was quite boggy, so a dose of methergine was given to the pt which helped the uterus become firm all over. The uterus closed in 2 layers using #1 chromic in continuous fashion. Peritoneal cavity irrigated with warm saline. Bilateral fimbriectomies were performed using O plain suture twice. The cut ends were cauterized. The uterus was replaced back into the abdomen, the gutters were cleaned and the tubes were rechecked and dry, Sponge, needle and instrument count reported to be correct. Abdominal peritoneum closed with 2-0 Chromic continuously. Rectus muscle approximated with the same suture. Fascia closed with 0-Vicryl. The subcutaneous tissue was irrigated and closed with 2-0 Chromic and skin was closed with 3-0 Monocryl in a subcuticular stitch. Steristrips with Mastosol were placed. Estimated blood loss 500 mL. Urine was clear. ABBY RAWLS MD Sep 03, 2018 20:10
[2018-09-03] MEDS: OXYTOCIN 30 UNITS/LR 500 ML IV SCH ×2 (20:54→21:46)
[2018-09-03] MEDS: IBUPROFEN 800 MG TAB PO SCH (22:00)
[2018-09-03 23:36] VITALS: BP 121/70; PULSE 70; RESP 18
[2018-09-04] MEDS: LACTATED RINGER'S 1,000 ML IV SCH ×2 (02:59→10:28)
[2018-09-04 03:38] VITALS: BP 111/63; PULSE 77; RESP 18
[2018-09-04] MEDS: IBUPROFEN 800 MG TAB PO SCH ×3 (06:00→21:37)
[2018-09-04 08:00] VITALS: BP 101/50; PULSE 80; RESP 19
[2018-09-04] MEDS ORDERED: INFLUENZA VIRUS VACCINE 0.5 ML (DISPENSING) IM* ONE (10:00)
[2018-09-04 12:00] VITALS: BP 106/61; PULSE 82; RESP 18
[2018-09-04 16:00] VITALS: BP 106/59; PULSE 81; RESP 19
[2018-09-04 20:00] VITALS: BP 110/64; PULSE 84; RESP 18
--- NOTE | 2018-09-04 22:56 | QN ---
Documentation Comment POD #1 s/p repeat with BTL. Pt feels well today with good pain control. Still with the IV and moore when seen in the AM. . T= 98.7 BP 101/50 Fundus is firm and at the umbilicus. Dressing is clean, dry and intact. Lochia wnl. Ext with A-pumps WBC 13.3 Hgb 10.3 Plts 177K P: Continue care. Will d/c the IV and moore later in the day. Plan d/c 09/06. ABBY RAWLS MD Sep 04, 2018 22:56
[2018-09-05 04:00] VITALS: BP 113/75; PULSE 77; RESP 20
[2018-09-05] MEDS: IBUPROFEN 800 MG TAB PO SCH ×3 (06:03→21:37)
[2018-09-05 08:00] VITALS: BP 102/54; PULSE 93; RESP 20
--- NOTE | 2018-09-05 13:15 | PD.PPDC ---
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 Discharge Instruction Condition [id number] Patient Condition: [id number] Good Diet Sbkmy7Am Diet: Yzbpj1h Resume Regular Diet Activity/Restrictions [id number] Activity: Iisyw0t Bedrest May be up to bathroom May be up for meals May Shower [id number] Restrictions: Ymmrx0r No Exercising No Lifting No Driving Minimize Walking Minimize Stair-climbing No Sexual Activity Nothing in the Vagina No Plain Dealing No Tampons, douche Wound/Drain Care Instructions [id number] Wound/Drain Care Lvygi3d Remove Steri Strips in 2 Instructions: weeks Keep clean and dry Follow-up Follow-up with Physician: 2, Week/Weeks Provider Information: Dr Villalta Return to clinic for Dezhs3Mm ACCOUNT 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
--- NOTE | 2018-09-05 13:17 | DS ---
Date/Time of Note Date/Time of Note DATE: 09/05/18 TIME: 13:16 Obstetrical Discharge Record Final Diagnosis Final Diagnosis: Term delivered Vaginal Delivery Obstetrical Delivery: Bilateral Tubal Ligation Section Section: Repeat Complications Augmentation: No Induction: No Condition on Discharge Physical Assessment Last Vitals: T=98.4 BP 102/54 Voiding: Yes Bowel Movement: Yes Breast: Filling Fundus: Firm Abdomen and Incision: C/D/I with steristrips present. Calf Tenderness: No Patient Condition: Good ABBY RAWLS MD Sep 05, 2018 13:17
[2018-09-05] MEDS ORDERED: OXYC-438 PO (13:18)
[2018-09-05] MEDS ORDERED: IBUP800T48 PO (13:18)
[2018-09-05 16:00] VITALS: BP 119/73; PULSE 72; RESP 19
[2018-09-05 19:40] VITALS: BP 112/63; PULSE 81; RESP 18
[2018-09-06 04:25] VITALS: BP 123/79; PULSE 67; RESP 18
[2018-09-06] MEDS: IBUPROFEN 800 MG TAB PO SCH (05:32)
[2018-09-06 08:00] VITALS: BP 123/74; PULSE 58; RESP 20
[2018-09-06] MEDS ORDERED: DIPHTH/TET/ACEL PERTUSS (ADULT) 0.5 ML VIAL IM* ONE (09:00)
== END 2018-09-06 13:19 | disposition home or self-care (01) | DRG 785 ==
LOC: GIL 11:51 → OBT 11:51 → L-D 11:51 → OBT 14:05 → L-D 18:01 → PP1 23:37
PROVIDERS: ADMIT Obstetrics & Gynecology; ATTEND Obstetrics & Gynecology
PROC: 10D00Z1 Extraction of Products of Conception, Low, Open Approach (ICD-10-PCS; principal; 2018-09-03)
PROC: 0UL70ZZ Occlusion of Bilateral Fallopian Tubes, Open Approach (ICD-10-PCS; 2018-09-03)
DX: O34.211 Maternal care for low transverse scar from previous cesarean delivery (principal); Z3A.38 38 weeks gestation of pregnancy; Z37.0 Single live birth; Z30.2 Encounter for sterilization
CPT/HCPCS: 85025; 85610; 85730; 86592; 86850; 86900; 86901; 88302; 90686; 90715; 99464; G0463; J0595; J0690; J1885; J2210; J2274; J2405; J2590; J2765; J3105; J7120